=== PATIENT | female | born 1970 | race Caucasian/White ===

== ENCOUNTER → 2020-10-19 | Outpatient (CLI) | payer BC ==
--- NOTE | 2020-10-23 14:46 | REP ---
INDICATION: DIAGNOSING LUNG MASS R91.8. COMPARISON: There are no prior PET CTs for comparison. Previous CT examination of the chest 09/28/2020 from an outside institution was reviewed. TECHNIQUE: After the intravenous administration of 9.10 mCi of FDG 18 triplane whole-body PET-CT was performed from the skull base to the mid thigh. FINDINGS: In the left neck, in a suprahyoid location, there is a 1.5 cm sized hypermetabolic lymph node posterior to the parapharyngeal space abutting the pharyngo mucosal space and having a maximal SUV value of 2.7. In the right lung upper lobe the spiculated lesion seen on the prior CT has a maximal SUV value of 4.35. No other abnormal hypermetabolic foci are seen in the lungs. There is no evidence of hypermetabolic mediastinal or hilar adenopathy. In the left posterior 7th rib there is a lytic lesion with surrounding hypermetabolic activity having a maximal SUV value of 6.3 there is multifocal hypermetabolic activity seen in the marrow of the vertebral column and having maximal SUV values of 3.89. Scattered areas of abnormal hypermetabolic activity are also seen in the pelvis having a maximal SUV value of 3.08 and within the sacrum having a maximal SUV value of 3.15. No other areas of abnormal hypermetabolic activity are seen in the neck, chest, abdomen, or pelvis. IMPRESSION: 1. The nodule seen in the right lung upper lobe is hypermetabolic consistent with malignancy. 2. There is evidence of skeletal metastatic disease including a left rib lesion as described above. 3. There is a single hypermetabolic lymph node in the left neck as described above. The etiology of this is uncertain. Contrast-enhanced neck CT is recommended. 4. Other findings as described above. <Electronically signed by Tristan Kebede > 10/23/20 [id number]
== END ==
LOC: M PLARAD 09:40
PROVIDERS: ATTEND Radiology Radiation Oncology
DX: C34.11 Malignant neoplasm of upper lobe, right bronchus or lung (principal); C79.51 Secondary malignant neoplasm of bone; C77.0 Secondary and unspecified malignant neoplasm of lymph nodes of head, face and neck
CPT/HCPCS: 78815; A9552

== ENCOUNTER → 2020-10-20 | Outpatient (CLI) | payer BC ==
[~2020-10-20] MED LIST: PROHANCE 279.3MG/ML 15ML VIAL As Ordered ONE; PROHANCE 279.3MG/ML 5ML VIAL As Ordered ONE
--- NOTE | 2020-10-20 20:34 | REPVR ---
PROCEDURE INFORMATION: Exam: MR Head Without and With Contrast Exam date and time: 10/20/2020 7:44 PM Age: 50 years old Clinical indication: Screening exam; Additional info: Lung mass eval for mets TECHNIQUE: Imaging protocol: MR of the head without and with intravenous contrast. Contrast material: PROHANCE; Contrast volume: 19 ml; Contrast route: INTRAVENOUS (IV); COMPARISON: PET/CT Skull/mid thigh 10/19/2020 11:02 AM FINDINGS: Ventricles demonstrate normal size and configuration. Major vascular flow voids at the skull base are preserved. No extra-axial fluid collection. No midline shift or intracranial mass effect. No pathologic white-matter signal or cerebral edema. No hydrocephalus. No diffusion restriction. No pathologic intracranial enhancement. Prominent perivascular space at the left basal ganglia. Mild paranasal sinus disease. Small left mastoid effusion. IMPRESSION: No acute intracranial abnormality. Electronically signed by: Pranav Fogn On 10/20/2020 20:33:42 PM
== END ==
LOC: M RAD 17:14
PROVIDERS: ATTEND Radiology Radiation Oncology
DX: R91.8 Other nonspecific abnormal finding of lung field (principal)
CPT/HCPCS: 70553; A9576